=== PATIENT | female | born 1995 | race African-American/Black ===

== ENCOUNTER 2021-05-09 09:48 | Emergency (ER) | payer OTHER ==
[2021-05-09 10:22] VITALS: BP 107/71; PULSE 74; TEMP 97.8; BMI 25.0
[2021-05-09 11:25] LABS: EPI CELLS 15 /uL (0-25.1); HYALINE CASTS 0 /uL (0-3.1); PH,URINE 8.5 (5.0-8.0); URINE APPEARANCE CLEAR; URINE BACTERIA 50 /uL (0-1359); URINE BILIRUBIN NEGATIVE (NEGATIVE); URINE COLOR YELLOW; URINE GLUCOSE (UA) NEGATIVE (NEGATIVE); URINE KETONE NEGATIVE (NEGATIVE); URINE LEUK ESTERASE TRACE (NEGATIVE); URINE NITRITE NEGATIVE (NEGATIVE); URINE PROTEIN NEGATIVE (NEGATIVE); URINE RBC 3 /uL (0-23.9); URINE UROBILINOGEN 0.2 mg/dL (0.2-1.0); URINE WBC 10 /uL (0-25.8)
== END 2021-05-09 11:51 | disposition home or self-care (01) ==
LOC: JER 09:48 → JERFT 09:48
DX: N94.10 Unspecified dyspareunia (principal)
CPT/HCPCS: 36415; 81003; 84703; 87070; 87077; 87086; 87205; 87491; 87591; 99283-25

== ENCOUNTER 2022-08-18 08:07 | Inpatient (IN) | payer OTHER ==
[2022-08-18 09:30] LABS: BASO % 0.5 % (0-2.0); EOS % 1.4 % (0-4.5); HEMATOCRIT 36.4 % (32.4-45.2); HEMOGLOBIN 12.7 GM/dL (10.7-15.3); LYMPH % 32.4 % (8-40); MCH 29.8 pg (25.7-33.7); MEAN CELL VOLUME 85.2 fl (80-96); MEAN PLT VOLUME 9.7 fl (7.5-11.1); NEUT % 55.7 % (42.8-82.8); PLATELET COUNT 135 10^3/uL (134-434); RBC 4.27 M/mm3 (3.60-5.2); RDW 13.1 % (11.6-15.6); WHITE BLOOD COUNT 5.5 K/mm3 (4.0-10.0)
[2022-08-18 09:34] LABS: INR 0.99 (0.83-1.09); PROTHROMBIN TIME (PATIENT) 11.5 SEC (9.7-13.0)
[2022-08-18 09:36] LABS: ACTIVATED PTT 26.8 SECONDS (25.2-36.5)
[2022-08-18 09:50] LABS: CALCIUM 8.9 mg/dL (8.5-10.1)
[2022-08-18 09:54] LABS: CREATININE 0.7 mg/dL (0.55-1.3)
[2022-08-18 09:56] VITALS: BMI 27.6
[2022-08-18] MEDS ORDERED: DINOPROSTONE 10 MG VAGINAL SUPPOSITORY VG ONE (10:00)
[2022-08-18] MEDS: ELECTROLYTE-148 SOLN 1,000 ML IV SCH ×2 (10:30→15:20)
[2022-08-18 11:15] LABS: HIV INTERPRETATION NEGATIVE (NEGATIVE)
[2022-08-18] MEDS: DINOPROSTONE 10 MG VAGINAL SUPPOSITORY VG ONE ×2 (20:58→22:20)
[2022-08-18] MEDS ORDERED: BUTORPHANOL TARTRATE 1 MG/ML VIAL IVPB ONE (22:26)
[2022-08-18] MEDS ORDERED: BUTORPHANOL TARTRATE 1 MG/ML VIAL ONE (22:27)
[2022-08-19] MEDS: ELECTROLYTE-148 SOLN 1,000 ML IV SCH
[2022-08-19] MEDS ORDERED: BUTORPHANOL TARTRATE 1 MG/ML VIAL IVPB ONE (01:48)
[2022-08-19] MEDS ORDERED: PROMETHAZINE HCL 25 MG/1 ML VIAL IVPB ONE (01:48)
[2022-08-19] MEDS ORDERED: BUTORPHANOL TARTRATE 1 MG/ML VIAL ONE (01:53)
[2022-08-19] MEDS ORDERED: PROMETHAZINE HCL 25 MG/1 ML VIAL ONE (01:53)
[2022-08-19] MEDS: DINOPROSTONE 10 MG VAGINAL SUPPOSITORY VG ONE (02:04)
[2022-08-19] MEDS ORDERED: FENTANYL/BUPIVACAINE/NS/PF - PCEA - 50 ML DISP.SYRIN EP ONE ×3 (03:39→11:22)
[2022-08-19] MEDS ORDERED: NALOXONE HCL 0.4 MG/ML VIAL IVPUSH PRN (04:21)
[2022-08-19] MEDS ORDERED: FENTANYL/BUPIVACAINE/NS/PF - PCEA - 50 ML DISP.SYRIN EP SCH ×2 (04:30→13:11)
[2022-08-19] MEDS ORDERED: DEXTROSE 5%-LACTATED RINGERS 1,000 ML IV SCH (07:00)
[2022-08-19] MEDS ORDERED: BUPIVACAINE HCL/PF 0.25% (2.5MG/ML) 10 ML VIAL ONE (11:14)
[2022-08-19] MEDS ORDERED: FENTANYL CITRATE/PF 50 MCG/ML VIAL ONE (11:14)
[2022-08-19] MEDS ORDERED: OXYTOCIN 30 UNITS in 0.9% NS 30 UNIT/500 ML INFUS.BAG IVPB ONE (11:56)
[2022-08-19] MEDS ORDERED: CITRIC ACID/SODIUM CITRATE 30 ML UNIT-DOSE CUP PO ONE (11:56)
[2022-08-19] MEDS ORDERED: LIDO 2%/EPI 1:200000 PRESRVFRE (20 ML SDVIAL) ONE (11:56)
[2022-08-19] MEDS ORDERED: KETOROLAC TROMETHAMINE 30 MG/1 ML VIAL ONE (12:33)
[2022-08-19] MEDS ORDERED: ceFAZolin SODIUM 1 GM VIAL ONE (12:33)
[2022-08-19] MEDS ORDERED: ONDANSETRON 4 MG/2 ML VIAL ONE (12:33)
[2022-08-19] MEDS ORDERED: morphine SULFATE/PF 1 MG/2 ML (2cc Syringe - QUVA) ONE (12:33)
[2022-08-19] MEDS ORDERED: DEXAMETHASONE SOD PHOSPHATE 4 MG/1 ML VIAL ONE (12:33)
[2022-08-19] MEDS ORDERED: IBUPROFEN 800 MG/8 ML IJ IVPB PRN (13:01)
[2022-08-19] MEDS ORDERED: METHYLERGONOVINE MALEATE 0.2 MG/1 ML AMP IM PRN (13:01)
[2022-08-19] MEDS: OXYTOCIN 20 UNITS in 0.9% NS 20 UNIT/1,000 ML INFUS.BAG IV SCH ×2 (13:15→20:44)
[2022-08-19] MEDS ORDERED: OXYTOCIN 20 UNITS in 0.9% NS 20 UNIT/1,000 ML INFUS.BAG IV ONE (13:18)
[2022-08-19] MEDS ORDERED: ONDANSETRON 4 MG/2 ML VIAL IVPUSH PRN (13:40)
[2022-08-20] MEDS: SIMETHICONE 80 MG TAB.CHEW (FP) PO PRN ×4 (04:53→20:48)
[2022-08-20] MEDS: IBUPROFEN 600 MG TABLET (FP) PO PRN ×3 (04:53→19:17)
[2022-08-20] MEDS: ACETAMINOPHEN 325 MG TABLET (FP) PO PRN ×3 (07:59→20:48)
[2022-08-20 08:58] LABS: BASO % 0.3 % (0-2.0); EOS % 0.5 % (0-4.5); HEMOGLOBIN 11.6 GM/dL (10.7-15.3); MCH 29.7 pg (25.7-33.7); MCHC 34.2 g/dl (32.0-36.0); MEAN PLT VOLUME 9.8 fl (7.5-11.1); MONO % 7.1 % (3.8-10.2); NEUT % 78.1 % (42.8-82.8); PLATELET COUNT 112 10^3/uL (134-434); RDW 13.4 % (11.6-15.6); WHITE BLOOD COUNT 14.5 K/mm3 (4.0-10.0)
[2022-08-20] MEDS: oxyCODONE HCL 5 MG TABLET PO PRN ×3 (09:41→23:25)
[2022-08-20] MEDS ORDERED: BISACODYL 10 MG SUPP.RECT RC PRN (13:01)
[2022-08-21] MEDS: IBUPROFEN 600 MG TABLET (FP) PO PRN ×4 (03:20→20:42)
[2022-08-21] MEDS: ACETAMINOPHEN 325 MG TABLET (FP) PO PRN ×3 (06:01→16:25)
[2022-08-21] MEDS: SIMETHICONE 80 MG TAB.CHEW (FP) PO PRN ×3 (06:01→20:43)
[2022-08-21] MEDS: oxyCODONE HCL 5 MG TABLET PO PRN (23:36)
[2022-08-22] MEDS: SIMETHICONE 80 MG TAB.CHEW (FP) PO PRN (06:32)
[2022-08-22] MEDS: IBUPROFEN 600 MG TABLET (FP) PO PRN ×2 (06:33→12:23)
[2022-08-22 12:19] VITALS: BP 114/61; PULSE 67; RESP 17; TEMP 98.5
== END 2022-08-22 15:35 | disposition home or self-care (01) | DRG 540 ==
LOC: JLDR 08:07 → J3W 08-19 15:41 → UNDODISIN 08-21 13:40
PROVIDERS: ADMIT Student in an Organized Health Care Education/Training Program; ATTEND Student in an Organized Health Care Education/Training Program
PROC: 3E0P7VZ Introduction of Hormone into Female Reproductive, Via Natural or Artificial Opening (ICD-10-PCS; 2022-08-18)
PROC: 10D00Z1 Extraction of Products of Conception, Low, Open Approach (ICD-10-PCS; principal; 2022-08-19)
DX: O36.8330 Maternal care for abnormalities of the fetal heart rate or rhythm, third trimester, not applicable or unspecified (principal); O62.1 Secondary uterine inertia; O48.0 Post-term pregnancy; Z3A.41 41 weeks gestation of pregnancy; Z37.0 Single live birth
CPT/HCPCS: 36415; 80048; 85025; 85610; 85730; 86780; 86850; 86900; 86901; 87389; 88307-TC; C9803-CS; U0003; U0005

== ENCOUNTER 2024-02-20 17:20 | Inpatient (IN) | payer OTHER ==
[2024-02-20] MEDS: LACTATED RINGERS SOLUTION 1,000 ML/1,000 ML INFUS.BAG IV SCH (17:30)
[2024-02-20 18:07] VITALS: BMI 25.7
[2024-02-20 18:18] LABS: BASO % 0.2 % (0-2.0); EOS % 1.3 % (0-4.5); HEMATOCRIT 40.8 % (32.4-45.2); HEMOGLOBIN 13.5 GM/dL (10.7-15.3); LYMPH % 24.4 % (8-40); MCH 29.3 pg (25.7-33.7); MCHC 33.1 g/dl (32.0-36.0); MEAN CELL VOLUME 88.3 fl (80-96); MEAN PLT VOLUME 10.1 fl (7.5-11.1); MONO % 8.6 % (3.8-10.2); NEUT % 65.5 % (42.8-82.8); PLATELET COUNT 145 10^3/uL (134-434); RBC 4.61 M/mm3 (3.60-5.2); RDW 13.6 % (11.6-15.6); WHITE BLOOD COUNT 7.6 K/mm3 (4.0-10.0)
[2024-02-20] MEDS ORDERED: NALOXONE HCL 0.4 MG/ML VIAL IVPUSH PRN (18:22)
[2024-02-20] MEDS ORDERED: FENTANYL/BUPIVACAINE/NS/PF - PCEA - 50 ML DISP.SYRIN EP ONE ×2 (18:25→23:25)
[2024-02-20] MEDS ORDERED: OXYTOCIN 20 UNITS in 0.9% NS 20 UNIT/1,000 ML INFUS.BAG IV ONE (18:26)
[2024-02-20] MEDS ORDERED: LIDOCAINE HCL 1% PRESERVATIVE FREE - 30ML VIAL ONE (18:26)
[2024-02-20] MEDS ORDERED: BUPIVACAINE HCL/PF 0.25% (2.5MG/ML) 10 ML VIAL ONE (18:28)
[2024-02-20] MEDS ORDERED: FENTANYL CITRATE/PF 50 MCG/ML VIAL ONE (18:28)
[2024-02-20] MEDS: FENTANYL/BUPIVACAINE/NS/PF - PCEA - 50 ML DISP.SYRIN EP SCH (18:40)
[2024-02-20 18:44] LABS: POTASSIUM 3.8 mmol/L (3.5-5.1)
[2024-02-20 18:45] LABS: BLOOD UREA NITROGEN 6.4 mg/dL (7-18); CALCIUM 9.3 mg/dL (8.5-10.1)
[2024-02-20 18:50] LABS: CREATININE 0.5 mg/dL (0.55-1.3)
[2024-02-20 19:02] LABS: ACTIVATED PTT 28.7 SECONDS (25.2-36.5); INR 0.91 (0.83-1.09); PROTHROMBIN TIME (PATIENT) 10.5 SEC (9.7-13.0)
[2024-02-20] MEDS ORDERED: TERBUTALINE SULFATE 1 MG/1 ML VIAL SQ ONE (19:04)
[2024-02-20 19:18] LABS: URINE AMPHETAMINES NEGATIVE (NEGATIVE); URINE BARBITURATES NEGATIVE (NEGATIVE); URINE BENZODIAZEPINES NEGATIVE (NEGATIVE)
[2024-02-20 19:19] LABS: COCAINE, UR NEGATIVE (NEGATIVE); METHADONE, UR NEGATIVE (NEGATIVE); OPIATES, URI NEGATIVE (NEGATIVE); PHENCYCLIDINE,URINE NEGATIVE (NEGATIVE)
[2024-02-20 19:47] LABS: HIV INTERPRETATION NEGATIVE (NEGATIVE)
[2024-02-20] MEDS: ELECTROLYTE-148 SOLN 1,000 ML IV SCH (20:30)
[2024-02-21] MEDS ORDERED: METHYLERGONOVINE MALEATE 0.2 MG/1 ML AMP IM PRN (00:11)
[2024-02-21] MEDS ORDERED: WITCH HAZEL 50% (TUCKS) 40 PAD/JAR PAD TP PRN (00:11)
[2024-02-21] MEDS ORDERED: BENZOCAINE 28 GM HEMORRHOIDAL OINTMENT TP PRN (00:11)
[2024-02-21] MEDS ORDERED: BENZOCAINE 20% 57 GM BOTTLE TP PRN (00:11)
[2024-02-21] MEDS ORDERED: BISACODYL 10 MG SUPP.RECT RC PRN (00:11)
[2024-02-21 00:46] LABS: CORD BASE EXCESS -1.8 mmol/L (0-2); CORD HCO3 24.1 mmHg (20-29); CORD PCO2 45.2 mmHg (30-78); CORD pH 7.345 (7.14-7.44)
[2024-02-21] MEDS: OXYTOCIN 20 UNITS in 0.9% NS 20 UNIT/1,000 ML INFUS.BAG IV SCH (03:25)
[2024-02-21] MEDS: IBUPROFEN 600 MG TABLET (FP) PO PRN (05:35)
[2024-02-21] MEDS: PRENATAL VITAMINS W/ FOLIC ACID TABLET (FP) PO SCH (09:38)
[2024-02-21] MEDS: ACETAMINOPHEN 325 MG TABLET (FP) PO PRN (13:53)
[2024-02-21] MEDS: oxyCODONE HCL 5 MG TABLET PO PRN (21:54)
[2024-02-22 00:01] VITALS: RESP 18
[2024-02-22 07:18] LABS: BASO % 0.1 % (0-2.0); EOS % 1.7 % (0-4.5); HEMATOCRIT 36.7 % (32.4-45.2); LYMPH % 21.7 % (8-40); MCHC 32.8 g/dl (32.0-36.0); MEAN CELL VOLUME 88.5 fl (80-96); MEAN PLT VOLUME 9.8 fl (7.5-11.1); MONO % 8.2 % (3.8-10.2); NEUT % 68.3 % (42.8-82.8); PLATELET COUNT 130 10^3/uL (134-434); RBC 4.14 M/mm3 (3.60-5.2); RDW 13.6 % (11.6-15.6); WHITE BLOOD COUNT 12.5 K/mm3 (4.0-10.0)
[2024-02-22 08:02] VITALS: BP 117/69; PULSE 66; TEMP 97.8
[2024-02-22] MEDS ORDERED: SENNOSIDES/DOCUSATE COMBO (SENNA PLUS) TABLET (UD) PO PRN (22:00)
== END 2024-02-22 14:20 | disposition home or self-care (01) | DRG 560 ==
LOC: JLDR 17:20 → J3W 02-21 02:39
PROVIDERS: ADMIT Obstetrics & Gynecology; ATTEND Obstetrics & Gynecology
PROC: 0HQ9XZZ Repair Perineum Skin, External Approach (ICD-10-PCS; principal; 2024-02-20)
PROC: 10E0XZZ Delivery of Products of Conception, External Approach (ICD-10-PCS; 2024-02-20)
DX: O34.211 Maternal care for low transverse scar from previous cesarean delivery (principal); O70.0 First degree perineal laceration during delivery; Z3A.39 39 weeks gestation of pregnancy; Z37.0 Single live birth
CPT/HCPCS: 36415; 36600; 59409; 80048; 80307; 82803; 85025; 85610; 85730; 86780; 86850; 86900; 86901; 87389